=== PATIENT | male | born 1955 | race Caucasian/White ===

== ENCOUNTER 2017-10-02 10:35 | Emergency (ER) | payer OTHER ==
[~2017-10-02] VITALS: Ht 177.8 cm; Wt 96.6 kg
--- NOTE | 2017-10-02 13:06 | ED HAND/WRIST INJURY COMPLAINT ---
History of Present Illness General Chief Complaint: Hand or Wrist Injury Stated Complaint: HAND LAC Source: patient Exam Limitations: no limitations Vital Signs & Intake/Output Vital Signs & Intake/Output Vital Signs Date Time Temp Pulse Resp B/P B/P Pulse O2 O2 Flow FiO2 Mean Ox Delivery Rate 10/02 1103 98.0 75 18 150/84 97 Room Air Room Air Allergies Coded Allergies: No Known Allergies (10/02/17) Reconcile Medications No Known Home Medications Triage Note: PT TO ED S/P "CUT MYSELF WITH GLASS". BANDAIDE INTACT TO RIGHT BASE OF THUMB AREA, NO ACTIVE BLEEDING NOTED AT THIS TIME. LAST TETANUS: 2 OR 3 YEARS AGO. Triage Nurses Notes Reviewed? yes Occurred: just prior to arrival Duration: hour(s): (2) Timing: remote history Injury Environment: work Severity: mild Severity Numbers: 4 Pain/Injury Location: Left: Hand. Method of Injury: laceration No Modifying Factors: none HPI: Patient is a 61-year-old male presenting to the emergency Department chief complaint of laceration to right hand. Patient reports that he was working, accidentally cut his hand on broken glass. Denies numbness or tingling. Denies any current pain. Reports that he did have mild burning discomfort. Patient up -to-date with tetanus. Received his last dose 2 years ago. Denies any nausea or vomiting fevers or chills chest pain or shortness of breath. Past History Travel History Traveled to [place] past 21 day No Medical History Any Pertinent Medical History? see below for history Neurological: NONE EENT: NONE Cardiovascular: NONE Respiratory: NONE Gastrointestinal: NONE Hepatic: NONE Renal: NONE Musculoskeletal: NONE Psychiatric: NONE Endocrine: NONE Blood Disorders: NONE Cancer(s): NONE Surgical History Surgical History: non-contributory Psychosocial History What is your primary language Estonian Tobacco Use: Never used ETOH Use: occasional use Illicit Drug Use: denies illicit drug use Family History Hx Contributory? No Review of Systems Review of Systems Constitutional: Reports: no symptoms. Comments Review of systems: See HPI, All other systems negative. Constitutional, no chills fever or weight loss HEENT: No visual changes no sore throat no congestion Cardiovascular: No chest pain Skin, no jaundice no rashes Respiratory: No dyspnea cough sputum or hemoptysis GI: No nausea no vomiting Muscle skeletal: no back pain, no neck pain, Neurologic: No numbness no confusion Psych: No stress anxiety Immunology: No splenectomy or history of AIDS Physical Exam Physical Exam General Appearance: well developed/nourished, no apparent distress, alert, awake , comfortable Hand Left: normal inspection, normal range of motion Hand Right: lacerations Comments: Well-developed well-nourished person in no acute distress HEENT: Atraumatic, normocephalic. Neck: Normal inspection Cardiovascular: Radial pulses are 2+ bilaterally. Respiratory:. No respiratory distress. Extremity: No edema, full range of motion of upper extremities without difficulties or pain. Full range of motion of right hand, right wrist without difficulty or pain. [employer] strength is equal and symmetric bilaterally. Neuro: Alert oriented x3, motor sensory normal in the right upper extremity. Skin: 4 CM Linear, subcutaneous WELL- approximating laceration on the dorsum of the right hand. No surrounding erythema or edema. No discharge. No foreign body in soft tissue. Psych: Mood and affect is normal, memory and judgment is normal. Progress Differential Diagnosis: LACERATION, ABRASION, CONTUSION Plan of Care: Current Medications Sig/Dawit Start time Last Medication Dose Stop Time Status Admin Lidocaine 20 ML ONCE ONE 10/02 1314 UNVr (Lidocaine 1%) 10/02 1316 Departure Departure Time of Disposition: 1350 Disposition: HOME OR SELF CARE Condition: Stable Clinical Impression Primary Impression: Hand laceration Qualifiers: Encounter type: initial encounter Foreign body presence: without foreign body Referrals: Patient Has No Primary Care Dr (PCP/Family) Additional Instructions: Return to the emergency department and 7-10 days for suture removal. Keep area clean and dry. Return sooner for any increased redness worsening pain or concerns. Departure Forms: Customer Survey General Discharge Information Prescriptions: Current Visit Scripts No Known Home Medications Procedures Laceration/Wound Repair Laceration/Wound Repair: Wound Location: upper extremity (RIGHT HAND) Wound's Depth, Shape: linear, subcutaneous Wound Length (cm): 4 Wound Explored: clean, no foreign body removed, irrigated extensively Irrigated w/ Saline (ccs): 500 Betadine Prep? Yes Anesthesia: 1% lidocaine Volume Anesthetic (ccs): 4 Wound Debrided: minimal Wound Repaired With: sutures Suture Size/Type: 5:0, nylon Number of Sutures: 5 Layer Closure? No Tetanus Status: up to date Progress: Tolerated procedure well.
[2017-10-02 13:50] VITALS: BP 130/67
== END 2017-10-02 13:56 ==
LOC: ERH 10:35
DX: S61.411A Laceration without foreign body of right hand, initial encounter (principal); W25.XXXA Contact with sharp glass, initial encounter; Y92.9 Unspecified place or not applicable; Y93.9 Activity, unspecified
CPT/HCPCS: J2001